=== PATIENT | female | born 1990 | race Caucasian/White ===

== ENCOUNTER 2017-10-20 18:11 | Emergency (ER) | payer MEDICAID ==
[~2017-10-20] VITALS: Ht 154.9 cm; Wt 66.0 kg
[2017-10-20] MEDS ORDERED: IBUPROFEN 600MG TABLET PO ONE (22:15)
[2017-10-20 22:19] VITALS: BP 118/49
== END 2017-10-20 22:26 | disposition home or self-care (01) ==
LOC: ER 18:15
DX: S80.02XA Contusion of left knee, initial encounter (principal); S80.01XA Contusion of right knee, initial encounter; V89.2XXA Person injured in unspecified motor-vehicle accident, traffic, initial encounter; Y93.89 Activity, other specified; Y99.8 Other external cause status; Y92.410 Unspecified street and highway as the place of occurrence of the external cause
CPT/HCPCS: 99283